=== PATIENT | female | born 1970 | race African-American/Black ===

== ENCOUNTER 2016-10-15 00:16 | Inpatient (IN) | payer OTHER ==
[2016-10-15] VITALS (10 sets, daily range): BP systolic 124–179; BP diastolic 65–89
[~2016-10-15] VITALS: Ht 170.2 cm; Wt 88.2 kg
[2016-10-15 00:54] LABS: BILIRUBIN,URINE NEGATIVE (NEG); GLUCOSE,URINE NEGATIVE (NEG); NITRITE,URINE NEGATIVE (NEG); PROTEIN,URINE NEGATIVE (NEG-TRACE); UROBILINOGEN,URINE 0.2 mg/dL (0.2 mg/dL)
[2016-10-15 01:03] LABS: BACTERIA,URINE 0 /HPF (0-FEW); SQUAMOUS EPITHELIAL CELL,UR FEW /LPF
[2016-10-15 01:30] LABS: BASO # 0.1 x10^3/uL (0.0-0.2); BASO % 1 % (0-3); EOS % 3 % (0-3); HEMATOCRIT 29.7 % (36.0-47.0); HEMOGLOBIN 9.3 g/dL (12.0-15.5); LYMPH # 2.2 x10^3/uL (1.0-4.8); LYMPH % 34 % (24-48); MEAN CORPUSCULAR HEMOGLOBIN 24 pg (25-35); MEAN CORPUSCULAR HGB CONC 31 g/dL (31-37); MEAN CORPUSCULAR VOLUME 76 fL (79-100); MONO % 7 % (0-9); NEUT % 54 % (31-73); PLATELET COUNT 333 x10^3/uL (140-400); RED BLOOD COUNT 3.92 x10^6/uL (3.50-5.40); RED CELL DISTRIBUTION WIDTH 18.2 % (11.5-14.5); WHITE BLOOD COUNT 6.3 x10^3/uL (4.0-11.0)
[2016-10-15 01:38] LABS: CALCIUM 9.6 mg/dL (8.5-10.1); GFR 71.6; POTASSIUM 3.2 mmol/L (3.5-5.1)
[2016-10-15 01:44] LABS: ALBUMIN 3.4 g/dL (3.4-5.0); ALBUMIN/GLOBULIN RATIO 0.9 (1.0-1.7); TOTAL BILIRUBIN 0.3 mg/dL (0.2-1.0); TOTAL PROTEIN 7.3 g/dL (6.4-8.2)
--- NOTE | 2016-10-15 03:00 | RAD ---
PELVIS COMPLETE Clinical Indication: HEAVY BLEEDING 2 WEEKS, NEG PREG, Comparison: None. TECHNIQUE: Real-time ultrasound imaging of the pelvis using transabdominal window is performed. Findings: Uterus measures 17.8 x 12.4 x 9.5 cm. The uterus is heterogeneous. There is suggestion of multiple uterine fibroids. The endometrium is not visualized. Incidentally visualized bladder is unremarkable. The adnexa are obscured due to the enlarged uterus and overlying bowel gas. No obvious pelvic free fluid is seen. IMPRESSION: 1. Enlarged and probably myomatous uterus. 2. The endometrial stripe and ovaries are not visualized. Electronically signed by: Ferny Walters MD (10/15/2016 2:57 AM) [facility]
[2016-10-15] MEDS ORDERED: amLODIPine BESYLATE 5 MG TABLET PO ONE (03:45)
[2016-10-15] MEDS ORDERED: LABETALOL 20 MG/4 ML DISP.SYRIN. IVP ONE (03:45)
[2016-10-15] MEDS ORDERED: fentaNYL PF VIAL 100 MCG/2 ML VIAL IV PRN ×2 (04:30→06:45)
[2016-10-15] MEDS ORDERED: cloNIDine HCL 0.1 MG TABLET PO ONE (04:30)
[2016-10-15] MEDS: ESTROGENS, CONJUGATED 25 MG VIAL IV SCH ×4 (04:35→23:09)
[2016-10-15] MEDS ORDERED: ONDANSETRON PF 4 MG/2 ML VIAL. IV PRN (06:45)
--- NOTE | 2016-10-15 06:59 | EKG ---
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
--- NOTE | 2016-10-15 07:24 | ED.ADGEN ---
Past Medical History Past Medical History: Hypertension Past Surgical History: No Surgical History, Other Additional Past Surgical Histo: CONTROL PLACEMENT Alcohol Use: Occasionally Drug Use: None Adult General Chief Complaint Chief Complaint: VAGINAL BLEEDING HPI HPI Patient is a 46 year old woman, history of hypertension, dysfunctional uterine bleeding, possible fibroids, who presents to the emergency department with complaint of persistent bleeding 2 weeks. Patient states that she's been experiencing persistent vaginal bleeding, passage of dark blood and clots, with some bright blood today, which brought her to come to the ED. She did be hypertensive upon arousing emergency department, to teens over 120s, and states that she stopped taking her blood pressure medication about a month ago or so, when she ran out. Patient states that she was taking control pills provided by her [employer] COMM[employer]ICATION[employer] ENG[employer], but stopped those about a year ago after her last episode of bleeding subsided. She states she has not follow-up with her OB yet for this episode. States she came in due to the persistence of symptoms and worsening symptoms today. She states she had a little bit of lightheadedness earlier, but no dizziness or passing out. Denies any weakness, numbness or tingling, chest pain or shortness breath, states that she does have a mild frontal headache currently. Denies any injuries. States that she is using about 5 pads a day. Review of Systems Review of Systems Constitutional: Denies fever or chills. [] Eyes: Denies change in visual acuity. [] HENT: Denies nasal congestion or sore throat. [] Respiratory: Denies cough or shortness of breath. [] Cardiovascular: Denies chest pain or edema. [] GI: Denies abdominal pain, nausea, vomiting, bloody stools or diarrhea. [] : Denies dysuria. [] Vaginal bleeding. Musculoskeletal: Denies back pain or joint pain. [] Integument: Denies rash. [] Neurologic: Denies headache, focal weakness or sensory changes. [] Endocrine: Denies polyuria or polydipsia. [] Lymphatic: Denies swollen glands. [] Psychiatric: Denies depression or anxiety. [] Allergies Allergies Allergies Coded Allergies Type Severity Reaction Last Updated Verified No Known Drug Allergies 10/24/14 No Physical Exam Physical Exam Constitutional: Well developed, well nourished, no acute distress, non-toxic appearance. [] HENT: Normocephalic, atraumatic, bilateral external ears normal, oropharynx moist, no oral exudates, nose normal. [] Eyes: PERRLA, EOMI, conjunctiva normal, no discharge. [] Neck: Normal range of motion, no tenderness, supple, no stridor. [] Cardiovascular:Heart rate regular rhythm, no murmur, S1, S2, rubs or gallops. [] Lungs & Thorax: Bilateral breath sounds clear to auscultation, no wheezing, rhonchi, rales. No chest wall crepitus or tenderness. [] Abdomen: Bowel sounds normal, soft, patient with firmness and distention of the uterus on palpation, no rebound, rigidity, no guarding, no masses, no pulsatile masses. [] Skin: Warm, dry, no erythema, no rash. [] Back: No tenderness, no CVA tenderness. [] Extremities: No tenderness, no cyanosis, no clubbing, ROM intact, no edema. [] Neurologic: Alert and oriented X 3, normal motor function, normal sensory function, no focal deficits noted. [] Psychologic: Affect normal, judgement normal, mood normal. [] Pelvic examination: Patient with a normal sternal examination, no lesions or injuries identified. Bimanual examination reveals an open os with a moderate amount of dark red blood on glove. Speculum examination reveals normal- appearing cervix with blood in the fold, no active bleeding noted at this time. Current Patient Data Vital Signs Vital Signs Date Time Temp Pulse Resp B/P (MAP) Pulse Ox O2 Delivery O2 Flow Rate FiO2 10/15/16 01:30 78 232/128 (162) 100 Room Air 10/15/16 00:45 98.1 18 98.1 Lab Values Laboratory Tests Test 10/14/16 23:49 10/15/16 00:17 10/15/16 01:21 POC Urine HCG, Qualitative Hcg negative (Negative) Urine Collection Type Unknown Urine Color Yellow Urine Clarity Clear Urine pH 6.0 Urine Specific [place] <=1.005 Urine Protein Negative mg/dL (NEG-TRACE) Urine Glucose (UA) Negative mg/dL (NEG) Urine Ketones (Stick) Negative mg/dL (NEG) Urine Blood Large (NEG) Urine Nitrite Negative (NEG) Urine Bilirubin Negative (NEG) Urine Urobilinogen Dipstick 0.2 mg/dL (0.2 mg/dL) Urine Leukocyte Esterase Negative (NEG) Urine RBC 1-2 /HPF (0-2) Urine WBC 1-4 /HPF (0-4) Urine Squamous Epithelial Cells Few /LPF Urine Bacteria 0 /HPF (0-FEW) Urine Mucus Slight /LPF White Blood Count 6.3 x10^3/uL (4.0-11.0) Red Blood Count 3.92 x10^6/uL (3.50-5.40) Hemoglobin 9.3 g/dL (12.0-15.5) L Hematocrit 29.7 % (36.0-47.0) L Mean Corpuscular Volume 76 fL (79-100) L Mean Corpuscular Hemoglobin 24 pg (25-35) L Mean Corpuscular Hemoglobin Concent 31 g/dL (31-37) Red Cell Distribution Width 18.2 % (11.5-14.5) H Platelet Count 333 x10^3/uL (140-400) Neutrophils (%) (Auto) 54 % (31-73) Lymphocytes (%) (Auto) 34 % (24-48) Monocytes (%) (Auto) 7 % (0-9) Eosinophils (%) (Auto) 3 % (0-3) Basophils (%) (Auto) 1 % (0-3) Neutrophils # (Auto) 3.4 x10^3uL (1.8-7.7) Lymphocytes # (Auto) 2.2 x10^3/uL (1.0-4.8) Monocytes # (Auto) 0.4 x10^3/uL (0.0-1.1) Eosinophils # (Auto) 0.2 x10^3/uL (0.0-0.7) Basophils # (Auto) 0.1 x10^3/uL (0.0-0.2) Sodium Level 139 mmol/L (136-145) Potassium Level 3.2 mmol/L (3.5-5.1) L Chloride Level 104 mmol/L (98-107) Carbon Dioxide Level 27 mmol/L (21-32) Anion Gap 8 (6-14) Blood Urea Nitrogen 16 mg/dL (7-20) Creatinine 1.0 mg/dL (0.6-1.0) Estimated GFR (Cockcroft-Gault) 71.6 BUN/Creatinine Ratio 16 (6-20) Glucose Level 83 mg/dL (70-99) Calcium Level 9.6 mg/dL (8.5-10.1) Total Bilirubin 0.3 mg/dL (0.2-1.0) Aspartate Amino Transferase (AST) 21 U/L (15-37) Alanine Aminotransferase (ALT) 19 U/L (14-59) Alkaline Phosphatase 83 U/L (46-116) Total Protein 7.3 g/dL (6.4-8.2) Albumin 3.4 g/dL (3.4-5.0) Albumin/Globulin Ratio 0.9 (1.0-1.7) L Laboratory Tests 10/15/16 01:21 Laboratory Tests 10/15/16 01:21 EKG EKG EC: Sinus rhythm, heart rate 67 beats/minute, left axis deviation with incomplete right bundle-branch block noted, and left anterior vesicular block, QTC of 451, [place] 168, QRS of 98, no ST elevations or depressions, abnormal ECG, does not meet STEMI criteria. No prior for comparison. As interpreted by me. [] Radiology/Procedures Radiology/Procedures [][facility] [address] [place] [address] IMAGING REPORT Signed PATIENT: JOSEFA VALVERDE ACCOUNT: [id number] : 1970 LOCATION: ER AGE: 46 SEX: F EXAM STATUS: REG ER ORD. PHYSICIAN: BRIGITTE GARCIA DO REASON: Abd pain/vaginal bleeding PROCEDURE: PELVIS COMPLETE PELVIS COMPLETE Clinical Indication: HEAVY BLEEDING 2 WEEKS, NEG PREG, Comparison: None. TECHNIQUE: Real-time ultrasound imaging of the pelvis using transabdominal window is performed. Findings: Uterus measures 17.8 x 12.4 x 9.5 cm. The uterus is heterogeneous. There is suggestion of multiple uterine fibroids. The endometrium is not visualized. Incidentally visualized bladder is unremarkable. The adnexa are obscured due to the enlarged uterus and overlying bowel gas. No obvious pelvic free fluid is seen. IMPRESSION: 1. Enlarged and probably myomatous uterus. 2. The endometrial stripe and ovaries are not visualized. Electronically signed by: Ferny Walters MD (10/15/2016 2:57 AM) [facility] DICTATED and SIGNED BY: FERNY WALTERS MD DATE: 10/15/16 0255 CC: BRIGITTE GARCIA DO; NO PCP ~ Course & Med Decision Making Course & Med Decision Making Pertinent Labs and Imaging studies reviewed. (See chart for details) Patient is a hemoglobin of 9.3, no history of anemia. Vital signs are stable in the emergency department, ultrasound reveals multiple fibroids and a distended uterus. I did discuss with patient, she states she was told previously that she would be recommended for hysterectomy. She did not follow-up at that time. As stated, patient is also noted to have an elevated blood pressure, we did administer the patient's home medication which she had not taken for over a month, 10 mg of Norvasc orally, along with labetalol IV in the ED. Administration was delayed due to difficulty with obtaining IV access. However despite with oral and IV intervention, patient's blood pressure remained in the 220s over 130s to 140s. Patient was complaining of a headache at that time as well. Patient was initiated on a nicardipine infusion for blood pressure control , also received analgesia with fentanyl. On reevaluation, blood pressure significant improved, with titration. Patient states her headache is now resolved. Findings as above were initially discussed with Dr. Falcon of [employer], at that time, we are still waiting to see if oral intervention would control patient's blood pressure, patient was initially exhibited his service as a full admission, for administration of IV estrogen, and patient received first dose of estrogen in the ED. I did contact Dr. Falcon after the lack of efficacy and using the oral and IV push medications for blood pressure control, the patient was initiated on a nicardipine infusion with good effect. He had this point will become a oracle drm consultant on the case, along with cardiology, and patient was admitted to the service of Dr. Alonso of internal medicine for comprehensive care, and close follow-up. Patient with repeat hemoglobin to be obtained 8:00 in the morning, with bridge orders entered per discussion. Patient remained stable and comfortable in the emergency department, with titration of nicardipine and good blood pressure control, at time of transfer to the floor. Dragon Disclaimer Dragon Disclaimer This electronic medical record was generated, in whole or in part, using a voice recognition dictation system. Departure Impression: Primary Impression: HTN (hypertension) Additional Impression: Vaginal bleeding Disposition: ADMITTED INPATIENT Admitting Physician: Jostin Alonso Condition: IMPROVED Problem Qualifiers BRIGITTE GARCIA DO Oct 15, 2016 07:24
[2016-10-15 08:26] LABS: BASO # 0.1 x10^3/uL (0.0-0.2); BASO % 1 % (0-3); EOS % 2 % (0-3); HEMATOCRIT 33.4 % (36.0-47.0); HEMOGLOBIN 10.5 g/dL (12.0-15.5); LYMPH # 1.3 x10^3/uL (1.0-4.8); LYMPH % 19 % (24-48); MEAN CORPUSCULAR HEMOGLOBIN 24 pg (25-35); MEAN CORPUSCULAR HGB CONC 32 g/dL (31-37); MEAN CORPUSCULAR VOLUME 76 fL (79-100); MONO % 5 % (0-9); NEUT % 73 % (31-73); PLATELET COUNT 381 x10^3/uL (140-400); RED BLOOD COUNT 4.42 x10^6/uL (3.50-5.40)
--- NOTE | 2016-10-15 10:08 | PDOC2 ---
BESSIE MCGEE DOCUMENT PROCESSING SPECIALIST 10/15/16 1008: CARDIAC CONSULT DATE OF CONSULT Date of Consult DATE: 10/15/16 TIME: 10:00 REASON FOR CONSULT Reason for Consult: Hypertension REFERRING PHYSICIAN Referring Physician: Dr. Torrez SOURCE Source: Chart review, Patient HISTORY OF PRESENT ILLNESS HISTORY OF PRESENT ILLNESS This is a 46 yo female, with a history of hypertension and dysfunctional uterine bleeding, and uterine fibroids, who presented with complaints of persistent vaginal bleeding over the last couple of weeks. BP noted to be significantly elevated upon arrival to ED. Norvasc PO and IV labetalol administered. SBP remained over 200; Cardene gtt initiated. Patient was previously on Norvasc but ran out of medication a couple of months ago and did not get refilled. Denies any chest pain, palpitations, dizziness, SOA, diaphoresis, or n/v. PAST MEDICAL HISTORY Past Medical History Hypertension, Dysfunctional uterine bleeding, Uterine fibroids PAST SURGICAL HISTORY Past Surgical History: No pertinent history FAMILY HISTORY Family History: Hypertension SOCIAL HISTORY Smoke: No ALCOHOL: none Drugs: None Lives: with Family CURRENT MEDICATIONS CURRENT MEDICATIONS Current Medications Medications (Trade) Dose Ordered Sig/Benjie Route PRN Reason Start Time Stop Time Status Last Admin Dose Admin Labetalol HCl (Normodyne) 20 mg 1X ONCE IVP 10/15/16 03:45 10/15/16 03:46 DC 10/15/16 04:17 Amlodipine Besylate (Norvasc) 10 mg 1X ONCE PO 10/15/16 03:45 10/15/16 03:46 DC 10/15/16 04:15 Estrogens Conjugated (Premarin) 25 mg Q6H IV 10/15/16 04:00 10/15/16 04:35 Fentanyl Citrate (Fentanyl 2ml Vial) 50 mcg PRN Q15MIN PRN IV PAIN GREATER THAN 3/10 10/15/16 04:30 10/16/16 04:29 10/15/16 04:34 Nicardipine HCl 50 mg/Sodium Chloride 270 ml @ 0 mls/hr CONT PRN IV SEE I/O RECORD 10/15/16 04:45 10/15/16 04:57 ALLERGIES ALLERGIES: Coded Allergies: No Known Drug Allergies (Unverified , 10/24/14) ROS Review of System 14 point ROS conducted with pertinent positives noted above in HPI. PHYSICAL EXAM General: Alert, Oriented X3, Cooperative, No acute distress HEENT: Atraumatic, Mucous membr. moist/pink Lungs: Clear to auscultation, Normal air movement Heart: Regular rate, Normal S1, Normal S2, Other (2/6 systolic murmur ) Abdomen: Soft, Other (mild diffuse tenderness) Extremities: No edema, Normal pulses Skin: No significant lesion Neuro: Normal speech, Sensation intact Psych/Mental Status: Mental status NL, Mood NL MUSCULOSKELETAL: No swelling VITALS VITALS Vital Signs Date Time Temp Pulse Resp B/P (MAP) Pulse Ox O2 Delivery O2 Flow Rate FiO2 10/15/16 09:00 70 18 149/77 (101) 100 Room Air 10/15/16 07:30 98.2 98.2 LABS Lab: Laboratory Tests Test 10/14/16 23:49 10/15/16 00:17 10/15/16 01:21 10/15/16 08:05 Bedside Urine HCG, Qualitative Hcg negative (Negative) Urine Collection Type Unknown Urine Color Yellow Urine Clarity Clear Urine pH 6.0 Urine Specific [place] <=1.005 Urine Protein Negative mg/dL (NEG-TRACE) Urine Glucose (UA) Negative mg/dL (NEG) Urine Ketones (Stick) Negative mg/dL (NEG) Urine Blood Large (NEG) Urine Nitrite Negative (NEG) Urine Bilirubin Negative (NEG) Urine Urobilinogen Dipstick 0.2 mg/dL (0.2 mg/dL) Urine Leukocyte Esterase Negative (NEG) Urine RBC 1-2 /HPF (0-2) Urine WBC 1-4 /HPF (0-4) Urine Squamous Epithelial Cells Few /LPF Urine Bacteria 0 /HPF (0-FEW) Urine Mucus Slight /LPF White Blood Count 6.3 x10^3/uL (4.0-11.0) 7.0 x10^3/uL (4.0-11.0) Red Blood Count 3.92 x10^6/uL (3.50-5.40) 4.42 x10^6/uL (3.50-5.40) Hemoglobin 9.3 g/dL (12.0-15.5) 10.5 g/dL (12.0-15.5) Hematocrit 29.7 % (36.0-47.0) 33.4 % (36.0-47.0) Mean Corpuscular Volume 76 fL (79-100) 76 fL (79-100) Mean Corpuscular Hemoglobin 24 pg (25-35) 24 pg (25-35) Mean Corpuscular Hemoglobin Concent 31 g/dL (31-37) 32 g/dL (31-37) Red Cell Distribution Width 18.2 % (11.5-14.5) 18.0 % (11.5-14.5) Platelet Count 333 x10^3/uL (140-400) 381 x10^3/uL (140-400) Neutrophils (%) (Auto) 54 % (31-73) 73 % (31-73) Lymphocytes (%) (Auto) 34 % (24-48) 19 % (24-48) Monocytes (%) (Auto) 7 % (0-9) 5 % (0-9) Eosinophils (%) (Auto) 3 % (0-3) 2 % (0-3) Basophils (%) (Auto) 1 % (0-3) 1 % (0-3) Neutrophils # (Auto) 3.4 x10^3uL (1.8-7.7) 5.1 x10^3uL (1.8-7.7) Lymphocytes # (Auto) 2.2 x10^3/uL (1.0-4.8) 1.3 x10^3/uL (1.0-4.8) Monocytes # (Auto) 0.4 x10^3/uL (0.0-1.1) 0.3 x10^3/uL (0.0-1.1) Eosinophils # (Auto) 0.2 x10^3/uL (0.0-0.7) 0.2 x10^3/uL (0.0-0.7) Basophils # (Auto) 0.1 x10^3/uL (0.0-0.2) 0.1 x10^3/uL (0.0-0.2) Sodium Level 139 mmol/L (136-145) Potassium Level 3.2 mmol/L (3.5-5.1) Chloride Level 104 mmol/L (98-107) Carbon Dioxide Level 27 mmol/L (21-32) Anion Gap 8 (6-14) Blood Urea Nitrogen 16 mg/dL (7-20) Creatinine 1.0 mg/dL (0.6-1.0) Estimated GFR (Cockcroft-Gault) 71.6 BUN/Creatinine Ratio 16 (6-20) Glucose Level 83 mg/dL (70-99) Calcium Level 9.6 mg/dL (8.5-10.1) Total Bilirubin 0.3 mg/dL (0.2-1.0) Aspartate Amino Transf (AST/SGOT) 21 U/L (15-37) Alanine Aminotransferase (ALT/SGPT) 19 U/L (14-59) Alkaline Phosphatase 83 U/L (46-116) Total Protein 7.3 g/dL (6.4-8.2) Albumin 3.4 g/dL (3.4-5.0) Albumin/Globulin Ratio 0.9 (1.0-1.7) ASSESSMENT/PLAN ASSESSMENT/PLAN 1. Malignant Hypertension; improved with Cardene gtt. Now controlled. 2. Dysfunctional uterine bleeding 3. Anemia secondary to blood loss 4. Hypokalemia Recommendations Start lisinopril. Titrate off Cardene gtt Replace K. check Mg and TSH Echo to evaluate systolic murmur; patient would like to defer at this time. Would like to schedule as an outpatient with followup. Will arrange. Management of DUB per BOOK BINDER Problems: SONNY CAMPBELL MD 10/15/16 1558: CARDIAC CONSULT ALLERGIES ALLERGIES: Coded Allergies: No Known Drug Allergies (Unverified , 10/24/14) ASSESSMENT/PLAN ASSESSMENT/PLAN Patient seen and examined. Agree with PANTS PRESSER's assessment and plan. 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 Blood pressure much better controlled since admission. Titrate oral and hypertensives and green Cardene off. 2-D echo recommended to evaluate LV function but patient would like to get this done as an outpatient. Continue management of DUB per gynecology team. Thank you for your consultation. Problems: JUAREZ MCGEEILY CHARLA Oct 15, 2016 10:08 SONNY CAMPBELL MD Oct 15, 2016 15:58
[2016-10-15] MEDS: ACETAMINOPHEN 325 MG TABLET. PO PRN ×2 (10:49→15:52)
[2016-10-15] MEDS ORDERED: POTASSIUM CHLORIDE 20 MEQ TABLET.ER. PO ONE (11:00)
[2016-10-15] MEDS: LISINOPRIL 20 MG TABLET PO SCH (11:42)
[2016-10-15] MEDS: ASPIRIN ENTERIC COATED 81 MG TABLET.DR. PO SCH (11:44)
[2016-10-15] MEDS: IV NORMAL SALINE 1000ML BAG 1,000 ML IV SCH ×2 (11:45→19:42)
--- NOTE | 2016-10-15 12:57 | PDOC1 ---
History and Physical Date of Admission Date of Admission 10/15/16 Identification/Chief Complaint Chief Complaint vaginal bleeding, htn Problems: Source Source: Chart review, Patient History of Present Illness History of Present Illness HPI HPI Patient is a 46 year old woman, history of hypertension, dysfunctional uterine bleeding, possible fibroids, came to ER for vaginal bleeding for 2 weeks. Pt said not really following any PCP now, on changing PCP status, not taking any HTN meds for a long time, was taking amlodipine before. She has had vaginal bleeding for 2 weeks, never goes away, was heavy at the beginning, then better, then worse again. She has some headache, but not real lightheaded or chest pain. She had similar vaginal bleeding before, was told fibroids, saw ob, but not intervention was done, has Essure for control. in ER, hB 9.3. BP 240s/130s. in ICU for cardine drip. Past Medical History Cardiovascular: HTN Past Surgical History Past Surgical History: No pertinent history Family History Family History: Hypertension Social History Smoke: No ALCOHOL: none Drugs: None Current Medications Current Medications Current Medications Medications (Trade) Dose Ordered Sig/Benjie Start Time Stop Time Status Last Admin Dose Admin Acetaminophen (Tylenol) 650 mg PRN Q4HRS PRN 10/15/16 06:45 10/16/16 06:44 10/15/16 10:49 650 MG Amlodipine Besylate (Norvasc) 10 mg 1X ONCE 10/15/16 03:45 10/15/16 03:46 DC 10/15/16 04:15 10 MG Aspirin (Ecotrin) 81 mg DAILYWBKFT 10/15/16 11:30 10/15/16 11:44 81 MG Clonidine HCl (Catapres) 0.1 mg 1X ONCE 10/15/16 04:30 10/15/16 04:31 DC Estrogens Conjugated (Premarin) 25 mg Q6H 10/15/16 04:00 10/15/16 11:38 25 MG Fentanyl Citrate (Fentanyl 2ml Vial) 50 mcg PRN Q1HR PRN 10/15/16 06:45 10/16/16 06:44 Labetalol HCl (Normodyne) 20 mg 1X ONCE 10/15/16 03:45 10/15/16 03:46 DC 10/15/16 04:17 20 MG Lisinopril (Prinivil) 20 mg DAILY 10/15/16 11:00 10/15/16 11:42 20 MG Nicardipine HCl 50 mg/Sodium Chloride 270 ml @ 0 mls/hr CONT PRN 10/15/16 04:45 10/15/16 04:57 25 MLS/HR Ondansetron HCl (Zofran) 4 mg PRN Q8HRS PRN 10/15/16 06:45 10/16/16 06:44 10/15/16 10:49 4 MG Potassium Chloride (Klor-Con) 40 meq 1X ONCE 10/15/16 11:00 10/15/16 11:03 DC 10/15/16 11:42 40 MEQ Sodium Chloride 1,000 ml @ 125 mls/hr Q8H 10/15/16 06:45 10/16/16 06:44 10/15/16 11:45 125 MLS/HR Allergies Allergies Allergies Coded Allergies Type Severity Reaction Last Updated Verified No Known Drug Allergies 10/24/14 No ROS Review of System CONSTITUTIONAL: No fever or chills EYES: No recent changes SKIN: No rash or itching CARDIOVASCULAR: No chest pain, syncope, palpitations, or edema RESPIRATORY: No SOB or cough GASTROINTESTINAL: No nausea, vomiting or abdominal pain NEUROLOGICAL: No headaches or weakness ENDOCRINE: No cold or heat intolerance GENITOURINARY: No urgency or frequency of urination MUSCULOSKELETAL: No back pain or joint pain LYMPHATICS: No enlarged lymph nodes PSYCHIATRIC: No anxiety or depression Physical Exam Physical Exam GEN.: No apparent distress. Alert and oriented. HEENT: Head is normocephalic, atraumatic NECK: Supple. LUNGS: Clear to auscultation. HEART: RRR, S1, S2 present. Peripheral pulses intact ABDOMEN: Soft, nontender. Positive bowel sounds. EXTREMITIES: Without any cyanosis. NEUROLOGIC: Normal speech, normal tone PSYCHIATRIC: Normal affect, normal mood. SKIN: No ulcerations Vitals Vitals Vital Signs Date Time Temp Pulse Resp B/P (MAP) Pulse Ox O2 Delivery O2 Flow Rate FiO2 10/15/16 11:42 151/71 10/15/16 09:00 70 18 100 Room Air 10/15/16 07:30 98.2 98.2 Labs Labs Laboratory Tests Test 10/14/16 23:49 10/15/16 00:17 10/15/16 01:10/15/16 08:05 Bedside Urine HCG, Qualitative Hcg negative (Negative) Urine Collection Type Unknown Urine Color Yellow Urine Clarity Clear Urine pH 6.0 Urine Specific [place] <=1.005 Urine Protein Negative mg/dL (NEG-TRACE) Urine Glucose (UA) Negative mg/dL (NEG) Urine Ketones (Stick) Negative mg/dL (NEG) Urine Blood Large (NEG) Urine Nitrite Negative (NEG) Urine Bilirubin Negative (NEG) Urine Urobilinogen Dipstick 0.2 mg/dL (0.2 mg/dL) Urine Leukocyte Esterase Negative (NEG) Urine RBC 1-2 /HPF (0-2) Urine WBC 1-4 /HPF (0-4) Urine Squamous Epithelial Cells Few /LPF Urine Bacteria 0 /HPF (0-FEW) Urine Mucus Slight /LPF White Blood Count 6.3 x10^3/uL (4.0-11.0) 7.0 x10^3/uL (4.0-11.0) Red Blood Count 3.92 x10^6/uL (3.50-5.40) 4.42 x10^6/uL (3.50-5.40) Hemoglobin 9.3 g/dL (12.0-15.5) 10.5 g/dL (12.0-15.5) Hematocrit 29.7 % (36.0-47.0) 33.4 % (36.0-47.0) Mean Corpuscular Volume 76 fL (79-100) 76 fL (79-100) Mean Corpuscular Hemoglobin 24 pg (25-35) 24 pg (25-35) Mean Corpuscular Hemoglobin Concent 31 g/dL (31-37) 32 g/dL (31-37) Red Cell Distribution Width 18.2 % (11.5-14.5) 18.0 % (11.5-14.5) Platelet Count 333 x10^3/uL (140-400) 381 x10^3/uL (140-400) Neutrophils (%) (Auto) 54 % (31-73) 73 % (31-73) Lymphocytes (%) (Auto) 34 % (24-48) 19 % (24-48) Monocytes (%) (Auto) 7 % (0-9) 5 % (0-9) Eosinophils (%) (Auto) 3 % (0-3) 2 % (0-3) Basophils (%) (Auto) 1 % (0-3) 1 % (0-3) Neutrophils # (Auto) 3.4 x10^3uL (1.8-7.7) 5.1 x10^3uL (1.8-7.7) Lymphocytes # (Auto) 2.2 x10^3/uL (1.0-4.8) 1.3 x10^3/uL (1.0-4.8) Monocytes # (Auto) 0.4 x10^3/uL (0.0-1.1) 0.3 x10^3/uL (0.0-1.1) Eosinophils # (Auto) 0.2 x10^3/uL (0.0-0.7) 0.2 x10^3/uL (0.0-0.7) Basophils # (Auto) 0.1 x10^3/uL (0.0-0.2) 0.1 x10^3/uL (0.0-0.2) Sodium Level 139 mmol/L (136-145) Potassium Level 3.2 mmol/L (3.5-5.1) Chloride Level 104 mmol/L (98-107) Carbon Dioxide Level 27 mmol/L (21-32) Anion Gap 8 (6-14) Blood Urea Nitrogen 16 mg/dL (7-20) Creatinine 1.0 mg/dL (0.6-1.0) Estimated GFR (Cockcroft-Gault) 71.6 BUN/Creatinine Ratio 16 (6-20) Glucose Level 83 mg/dL (70-99) Calcium Level 9.6 mg/dL (8.5-10.1) Total Bilirubin 0.3 mg/dL (0.2-1.0) Aspartate Amino Transf (AST/SGOT) 21 U/L (15-37) Alanine Aminotransferase (ALT/SGPT) 19 U/L (14-59) Alkaline Phosphatase 83 U/L (46-116) Total Protein 7.3 g/dL (6.4-8.2) Albumin 3.4 g/dL (3.4-5.0) Albumin/Globulin Ratio 0.9 (1.0-1.7) Magnesium Level 2.1 mg/dL (1.8-2.4) Thyroid Stimulating Hormone (TSH) 1.235 uIU/mL (0.358-3.74) Laboratory Tests Test 10/14/16 23:49 10/15/16 00:17 10/15/16 01:21 10/15/16 08:05 Bedside Urine HCG, Qualitative Hcg negative (Negative) Urine Collection Type Unknown Urine Color Yellow Urine Clarity Clear Urine pH 6.0 Urine Specific [place] <=1.005 Urine Protein Negative mg/dL (NEG-TRACE) Urine Glucose (UA) Negative mg/dL (NEG) Urine Ketones (Stick) Negative mg/dL (NEG) Urine Blood Large (NEG) Urine Nitrite Negative (NEG) Urine Bilirubin Negative (NEG) Urine Urobilinogen Dipstick 0.2 mg/dL (0.2 mg/dL) Urine Leukocyte Esterase Negative (NEG) Urine RBC 1-2 /HPF (0-2) Urine WBC 1-4 /HPF (0-4) Urine Squamous Epithelial Cells Few /LPF Urine Bacteria 0 /HPF (0-FEW) Urine Mucus Slight /LPF White Blood Count 6.3 x10^3/uL (4.0-11.0) 7.0 x10^3/uL (4.0-11.0) Red Blood Count 3.92 x10^6/uL (3.50-5.40) 4.42 x10^6/uL (3.50-5.40) Hemoglobin 9.3 g/dL (12.0-15.5) 10.5 g/dL (12.0-15.5) Hematocrit 29.7 % (36.0-47.0) 33.4 % (36.0-47.0) Mean Corpuscular Volume 76 fL (79-100) 76 fL (79-100) Mean Corpuscular Hemoglobin 24 pg (25-35) 24 pg (25-35) Mean Corpuscular Hemoglobin Concent 31 g/dL (31-37) 32 g/dL (31-37) Red Cell Distribution Width 18.2 % (11.5-14.5) 18.0 % (11.5-14.5) Platelet Count 333 x10^3/uL (140-400) 381 x10^3/uL (140-400) Neutrophils (%) (Auto) 54 % (31-73) 73 % (31-73) Lymphocytes (%) (Auto) 34 % (24-48) 19 % (24-48) Monocytes (%) (Auto) 7 % (0-9) 5 % (0-9) Eosinophils (%) (Auto) 3 % (0-3) 2 % (0-3) Basophils (%) (Auto) 1 % (0-3) 1 % (0-3) Neutrophils # (Auto) 3.4 x10^3uL (1.8-7.7) 5.1 x10^3uL (1.8-7.7) Lymphocytes # (Auto) 2.2 x10^3/uL (1.0-4.8) 1.3 x10^3/uL (1.0-4.8) Monocytes # (Auto) 0.4 x10^3/uL (0.0-1.1) 0.3 x10^3/uL (0.0-1.1) Eosinophils # (Auto) 0.2 x10^3/uL (0.0-0.7) 0.2 x10^3/uL (0.0-0.7) Basophils # (Auto) 0.1 x10^3/uL (0.0-0.2) 0.1 x10^3/uL (0.0-0.2) Sodium Level 139 mmol/L (136-145) Potassium Level 3.2 mmol/L (3.5-5.1) Chloride Level 104 mmol/L (98-107) Carbon Dioxide Level 27 mmol/L (21-32) Anion Gap 8 (6-14) Blood Urea Nitrogen 16 mg/dL (7-20) Creatinine 1.0 mg/dL (0.6-1.0) Estimated GFR (Cockcroft-Gault) 71.6 BUN/Creatinine Ratio 16 (6-20) Glucose Level 83 mg/dL (70-99) Calcium Level 9.6 mg/dL (8.5-10.1) Total Bilirubin 0.3 mg/dL (0.2-1.0) Aspartate Amino Transf (AST/SGOT) 21 U/L (15-37) Alanine Aminotransferase (ALT/SGPT) 19 U/L (14-59) Alkaline Phosphatase 83 U/L (46-116) Total Protein 7.3 g/dL (6.4-8.2) Albumin 3.4 g/dL (3.4-5.0) Albumin/Globulin Ratio 0.9 (1.0-1.7) Magnesium Level 2.1 mg/dL (1.8-2.4) Thyroid Stimulating Hormone (TSH) 1.235 uIU/mL (0.358-3.74) VTE Prophylaxis Ordered VTE Prophylaxis Devices: Yes VTE Pharmacological Prophylaxi: No Assessment/Plan Assessment/Plan HTN urgency abnormal vaginal bleeding, 2/2 uterine fibroids likely , had essure hypokalemia obesity anemia, likely chronic with vaginal bleeding plan: fu with ob, card taper cardine drip. add lisinopril 20mg daily echo? replete K PElivic US done check anemia work up ok to transfer out of icu if off cardine drip GIO MULLEN MD Oct 15, 2016 12:57
[2016-10-15] MEDS ORDERED: traMADol 50 MG TABLET PO PRN (13:00)
[2016-10-15] MEDS ORDERED: hydrALAZINE 20 MG/ML VIAL. IVP PRN (13:00)
[2016-10-15] MEDS ORDERED: ACETAMINOPHEN 325 MG TABLET. PO PRN (13:00)
[2016-10-15] MEDS ORDERED: MORPHINE SULFATE 2 MG/ML DISP.SYRIN. IV PRN (13:00)
[2016-10-15] MEDS ORDERED: DOCUSATE SODIUM 100 MG CAPSULE. PO PRN (13:00)
--- NOTE | 2016-10-15 16:44 | PDOC2 ---
CONSULT Date of Consult Date of Consult DATE: 10/15/16 TIME: 16:36 Reason for Consult Reason for Consult: AUB Identification/Chief Complaint Chief Complaint AUB Problems: Source Source: Patient History of Present Illness Reason for Visit: H/O AUB with fibroids greater than one year Past Medical History Cardiovascular: HTN Pulmonary: No pertinent hx GI: No pertinent hx Heme/Onc: No pertinent hx Past Surgical History Past Surgical History ESSURE Past Surgical History: No pertinent history Family History Family History: Hypertension Social History No ALCOHOL: none Drugs: None Lives: with Family Current Medications Current Medications Current Medications Labetalol HCl (Normodyne) 20 mg 1X ONCE IVP Last administered on 10/15/16 04: 17; Start 10/15/16 at 03:45; Stop 10/15/16 at 03:46; Status DC Amlodipine Besylate (Norvasc) 10 mg 1X ONCE PO Last administered on 10/15/16 04:15; Start 10/15/16 at 03:45; Stop 10/15/16 at 03:46; Status DC Estrogens Conjugated (Premarin) 25 mg Q6H IV Last administered on 10/15/16 11: 38; Start 10/15/16 at 04:00 Clonidine HCl (Catapres) 0.1 mg 1X ONCE PO ; Start 10/15/16 at 04:30; Stop at 04:31; Status DC Fentanyl Citrate (Fentanyl 2ml Vial) 50 mcg PRN Q15MIN PRN IV PAIN GREATER THAN 3/10 Last administered on 10/15/16 04:34; Start 10/15/16 at 04:30; Stop at 04:29 Nicardipine HCl 50 mg/Sodium Chloride 270 ml @ 0 mls/hr CONT PRN IV SEE I/O RECORD Last administered on 10/15/16 04:57; Start 10/15/16 at 04:45 Ondansetron HCl (Zofran) 4 mg PRN Q8HRS PRN IV NAUSEA/VOMITING Last administered on 10/15/16 10:49; Start 10/15/16 at 06:45; Stop 10/16/16 at 06:44 Fentanyl Citrate (Fentanyl 2ml Vial) 50 mcg PRN Q1HR PRN IV PAIN; Start at 06:45; Stop 10/16/16 at 06:44 Sodium Chloride 1,000 ml @ 125 mls/hr Q8H IV Last administered on 10/15/16 11 :45; Start 10/15/16 at 06:45; Stop 10/16/16 at 06:44 Acetaminophen (Tylenol) 650 mg PRN Q4HRS PRN PO FEVER Last administered on 10/15 15:52; Start 10/15/16 at 06:45; Stop 10/16/16 at 06:44 Lisinopril (Prinivil) 20 mg DAILY PO Last administered on 10/15/16 11:42; Start 10/15/16 at 11:00 Aspirin (Ecotrin) 81 mg DAILYWBKFT PO Last administered on 10/15/16 11:44; Start 10/15/16 at 11:30 Potassium Chloride (Klor-Con) 40 meq 1X ONCE PO Last administered on 11:42; Start 10/15/16 at 11:00; Stop 10/15/16 at 11:03; Status DC Acetaminophen (Tylenol) 650 mg PRN Q6HRS PRN PO FEVER; Start 10/15/16 at 13:00 Ondansetron HCl (Zofran) 4 mg PRN Q6HRS PRN IV NAUSEA/VOMITING; Start 10/15/16 at 13:00 Morphine Sulfate 2 mg PRN Q2HR PRN IV PAIN; Start 10/15/16 at 13:00 Tramadol HCl (Ultram) 50 mg PRN Q6HRS PRN PO PAIN; Start 10/15/16 at 13:00 Hydralazine HCl (Apresoline) 10 mg PRN Q4HRS PRN IVP ELEVATED BP, SEE COMMENTS ; Start 10/15/16 at 13:00 Docusate Sodium (Colace) 100 mg PRN DAILY PRN PO CONSTIPATION; Start 10/15/16 at 13:00 Allergies Allergies: Coded Allergies: No Known Drug Allergies (Unverified , 10/24/14) Physical Exam General: Alert, Oriented X3, Cooperative, No acute distress Abdomen: Other Extremities: No clubbing, No cyanosis, No edema, Normal pulses, No tenderness/ swelling Skin: No rashes, No breakdown Neuro: Normal gait, Normal speech, Normal tone, Sensation intact, Reflexes 2+ Psych/Mental Status: Mental status NL, Mood NL Vitals VITALS Vital Signs Date Time Temp Pulse Resp B/P (MAP) Pulse Ox O2 Delivery O2 Flow Rate FiO2 10/15/16 13:00 70 18 140/81 (100) Room Air 10/15/16 12:00 97.7 97.7 10/15/16 09:00 100 Labs Labs Laboratory Tests Test 10/14/16 23:49 10/15/16 00:17 10/15/16 01:21 10/15/16 06:00 Bedside Urine HCG, Qualitative Hcg negative (Negative) Urine Collection Type Unknown Urine Color Yellow Urine Clarity Clear Urine pH 6.0 Urine Specific [place] <=1.005 Urine Protein Negative mg/dL (NEG-TRACE) Urine Glucose (UA) Negative mg/dL (NEG) Urine Ketones (Stick) Negative mg/dL (NEG) Urine Blood Large (NEG) Urine Nitrite Negative (NEG) Urine Bilirubin Negative (NEG) Urine Urobilinogen Dipstick 0.2 mg/dL (0.2 mg/dL) Urine Leukocyte Esterase Negative (NEG) Urine RBC 1-2 /HPF (0-2) Urine WBC 1-4 /HPF (0-4) Urine Squamous Epithelial Cells Few /LPF Urine Bacteria 0 /HPF (0-FEW) Urine Mucus Slight /LPF White Blood Count 6.3 x10^3/uL (4.0-11.0) Red Blood Count 3.92 x10^6/uL (3.50-5.40) Hemoglobin 9.3 g/dL (12.0-15.5) Hematocrit 29.7 % (36.0-47.0) Mean Corpuscular Volume 76 fL (79-100) Mean Corpuscular Hemoglobin 24 pg (25-35) Mean Corpuscular Hemoglobin Concent 31 g/dL (31-37) Red Cell Distribution Width 18.2 % (11.5-14.5) Platelet Count 333 x10^3/uL (140-400) Neutrophils (%) (Auto) 54 % (31-73) Lymphocytes (%) (Auto) 34 % (24-48) Monocytes (%) (Auto) 7 % (0-9) Eosinophils (%) (Auto) 3 % (0-3) Basophils (%) (Auto) 1 % (0-3) Neutrophils # (Auto) 3.4 x10^3uL (1.8-7.7) Lymphocytes # (Auto) 2.2 x10^3/uL (1.0-4.8) Monocytes # (Auto) 0.4 x10^3/uL (0.0-1.1) Eosinophils # (Auto) 0.2 x10^3/uL (0.0-0.7) Basophils # (Auto) 0.1 x10^3/uL (0.0-0.2) Sodium Level 139 mmol/L (136-145) Potassium Level 3.2 mmol/L (3.5-5.1) Chloride Level 104 mmol/L (98-107) Carbon Dioxide Level 27 mmol/L (21-32) Anion Gap 8 (6-14) Blood Urea Nitrogen 16 mg/dL (7-20) Creatinine 1.0 mg/dL (0.6-1.0) Estimated GFR (Cockcroft-Gault) 71.6 BUN/Creatinine Ratio 16 (6-20) Glucose Level 83 mg/dL (70-99) Calcium Level 9.6 mg/dL (8.5-10.1) Total Bilirubin 0.3 mg/dL (0.2-1.0) Aspartate Amino Transf (AST/SGOT) 21 U/L (15-37) Alanine Aminotransferase (ALT/SGPT) 19 U/L (14-59) Alkaline Phosphatase 83 U/L (46-116) Total Protein 7.3 g/dL (6.4-8.2) Albumin 3.4 g/dL (3.4-5.0) Albumin/Globulin Ratio 0.9 (1.0-1.7) Nasal Screen MRSA (PCR) Negative (Negative) Test 10/15/16 08:05 White Blood Count 7.0 x10^3/uL (4.0-11.0) Red Blood Count 4.42 x10^6/uL (3.50-5.40) Hemoglobin 10.5 g/dL (12.0-15.5) Hematocrit 33.4 % (36.0-47.0) Mean Corpuscular Volume 76 fL (79-100) Mean Corpuscular Hemoglobin 24 pg (25-35) Mean Corpuscular Hemoglobin Concent 32 g/dL (31-37) Red Cell Distribution Width 18.0 % (11.5-14.5) Platelet Count 381 x10^3/uL (140-400) Neutrophils (%) (Auto) 73 % (31-73) Lymphocytes (%) (Auto) 19 % (24-48) Monocytes (%) (Auto) 5 % (0-9) Eosinophils (%) (Auto) 2 % (0-3) Basophils (%) (Auto) 1 % (0-3) Neutrophils # (Auto) 5.1 x10^3uL (1.8-7.7) Lymphocytes # (Auto) 1.3 x10^3/uL (1.0-4.8) Monocytes # (Auto) 0.3 x10^3/uL (0.0-1.1) Eosinophils # (Auto) 0.2 x10^3/uL (0.0-0.7) Basophils # (Auto) 0.1 x10^3/uL (0.0-0.2) Magnesium Level 2.1 mg/dL (1.8-2.4) Thyroid Stimulating Hormone (TSH) 1.235 uIU/mL (0.358-3.74) Laboratory Tests Test 10/14/16 23:49 10/15/16 00:17 10/15/16 01:21 10/15/16 06:00 Bedside Urine HCG, Qualitative Hcg negative (Negative) Urine Collection Type Unknown Urine Color Yellow Urine Clarity Clear Urine pH 6.0 Urine Specific [place] <=1.005 Urine Protein Negative mg/dL (NEG-TRACE) Urine Glucose (UA) Negative mg/dL (NEG) Urine Ketones (Stick) Negative mg/dL (NEG) Urine Blood Large (NEG) Urine Nitrite Negative (NEG) Urine Bilirubin Negative (NEG) Urine Urobilinogen Dipstick 0.2 mg/dL (0.2 mg/dL) Urine Leukocyte Esterase Negative (NEG) Urine RBC 1-2 /HPF (0-2) Urine WBC 1-4 /HPF (0-4) Urine Squamous Epithelial Cells Few /LPF Urine Bacteria 0 /HPF (0-FEW) Urine Mucus Slight /LPF White Blood Count 6.3 x10^3/uL (4.0-11.0) Red Blood Count 3.92 x10^6/uL (3.50-5.40) Hemoglobin 9.3 g/dL (12.0-15.5) Hematocrit 29.7 % (36.0-47.0) Mean Corpuscular Volume 76 fL (79-100) Mean Corpuscular Hemoglobin 24 pg (25-35) Mean Corpuscular Hemoglobin Concent 31 g/dL (31-37) Red Cell Distribution Width 18.2 % (11.5-14.5) Platelet Count 333 x10^3/uL (140-400) Neutrophils (%) (Auto) 54 % (31-73) Lymphocytes (%) (Auto) 34 % (24-48) Monocytes (%) (Auto) 7 % (0-9) Eosinophils (%) (Auto) 3 % (0-3) Basophils (%) (Auto) 1 % (0-3) Neutrophils # (Auto) 3.4 x10^3uL (1.8-7.7) Lymphocytes # (Auto) 2.2 x10^3/uL (1.0-4.8) Monocytes # (Auto) 0.4 x10^3/uL (0.0-1.1) Eosinophils # (Auto) 0.2 x10^3/uL (0.0-0.7) Basophils # (Auto) 0.1 x10^3/uL (0.0-0.2) Sodium Level 139 mmol/L (136-145) Potassium Level 3.2 mmol/L (3.5-5.1) Chloride Level 104 mmol/L (98-107) Carbon Dioxide Level 27 mmol/L (21-32) Anion Gap 8 (6-14) Blood Urea Nitrogen 16 mg/dL (7-20) Creatinine 1.0 mg/dL (0.6-1.0) Estimated GFR (Cockcroft-Gault) 71.6 BUN/Creatinine Ratio 16 (6-20) Glucose Level 83 mg/dL (70-99) Calcium Level 9.6 mg/dL (8.5-10.1) Total Bilirubin 0.3 mg/dL (0.2-1.0) Aspartate Amino Transf (AST/SGOT) 21 U/L (15-37) Alanine Aminotransferase (ALT/SGPT) 19 U/L (14-59) Alkaline Phosphatase 83 U/L (46-116) Total Protein 7.3 g/dL (6.4-8.2) Albumin 3.4 g/dL (3.4-5.0) Albumin/Globulin Ratio 0.9 (1.0-1.7) Nasal Screen MRSA (PCR) Negative (Negative) Test 10/15/16 08:05 White Blood Count 7.0 x10^3/uL (4.0-11.0) Red Blood Count 4.42 x10^6/uL (3.50-5.40) Hemoglobin 10.5 g/dL (12.0-15.5) Hematocrit 33.4 % (36.0-47.0) Mean Corpuscular Volume 76 fL (79-100) Mean Corpuscular Hemoglobin 24 pg (25-35) Mean Corpuscular Hemoglobin Concent 32 g/dL (31-37) Red Cell Distribution Width 18.0 % (11.5-14.5) Platelet Count 381 x10^3/uL (140-400) Neutrophils (%) (Auto) 73 % (31-73) Lymphocytes (%) (Auto) 19 % (24-48) Monocytes (%) (Auto) 5 % (0-9) Eosinophils (%) (Auto) 2 % (0-3) Basophils (%) (Auto) 1 % (0-3) Neutrophils # (Auto) 5.1 x10^3uL (1.8-7.7) Lymphocytes # (Auto) 1.3 x10^3/uL (1.0-4.8) Monocytes # (Auto) 0.3 x10^3/uL (0.0-1.1) Eosinophils # (Auto) 0.2 x10^3/uL (0.0-0.7) Basophils # (Auto) 0.1 x10^3/uL (0.0-0.2) Magnesium Level 2.1 mg/dL (1.8-2.4) Thyroid Stimulating Hormone (TSH) 1.235 uIU/mL (0.358-3.74) Assessment/Plan Assessment/Plan AUB Symptomatic Uterine Leiomyomata Cannot rule ot uterine malignancy Recommendations: EMB SARAH Pt concerned about work R/B/I/A Discussed with pt in detail Will most likely perform EMB this hospitalization and send pt home on meal grinder tender 10mg qd and perform hyst after pt resolves work and social issues SIERRA EVANGELISTA MD Oct 15, 2016 16:44
[2016-10-15] MEDS: ONDANSETRON PF 4 MG/2 ML VIAL. IV PRN ×2 (16:59→22:35)
--- NOTE | 2016-10-16 00:25 | ACF ---
Admission Forms Criteria HYPERTENSION Clinical Indications for Admission to Inpatient Care ( Place "X" for any and all applicable criteria): Admission is indicated for 1 or more of the following(1)(2)(3)(4)(5)(6)(7)(8)(9) (10): [ ]I. Hypertensive emergency, with evidence of acute and progressing target organ disease as indicated by 1 or more of the following: [ ]a) Hypertensive encephalopathy (eg, confusion, altered mental status) [ ]b) Cerebral infarction [ ]c) Intracranial hemorrhage [ ]d) Myocardial ischemia or infarction [ ]e) Heart failure (eg. Pulmonary edema) [ ]f) Aortic dissection [ ]g) Increased creatinine (new) with reduction of more than 50% in estimated glomerular filtration rate from baseline [ ]h) Seizure [ ]i) Papilledema [ ]j) Retinal hemorrhage [ ]k) Microangiopathic hemolytic anemia [ ]l) Other significant finding secondary to hypertension [ ]II. Adrenergic or sympathomimetic crisis (eg, severe hypertension due to pheochromocytoma crisis, cocaine or amphetamine intoxication, or clonidine withdrawal) [X]III. Severe hypertension (SBP greater than 180 mmHg or DBP greater than 110 mmHg or greater than the 95th percentile for age, gender, and height in pediatric patients) that cannot be controlled (eg, to SBP less than 160 mmHg and DBP less than 100 mmHg in adults) by treatment with oral medication in emergency department or observation care Extended stay beyond goal length of stay may be needed for(11)(12)(13): [ ]a) Persistent hypertensive encephalopathy [ ]b) Continuation of pulmonary edema [ ]c) Recurring or persistent severe hypertension [ ]d) Target organ damage (eg, angina, stroke, aortic dissection) The original [employer] content created by [employer] has been revised. The portions of the content which have been revised are identified through the use of italic text, and [employer] [email or web address] has neither reviewed nor approved the modified material. All other unmodified content is copyright [employer] Please see references footnoted in the original [employer] edition 2014 Admission Criteria Met?: Yes JANET ANTON Oct 16, 2016 00:25
[2016-10-16 01:00] VITALS: BP 166/79
[2016-10-16] MEDS ORDERED: PROMETHAZINE 12.5 MG in IV NORMAL SALINE 50ML 50 ML IV PRN (01:15)
[2016-10-16] MEDS ORDERED: PROCHLORPERAZINE 10 MG/2 ML VIAL. IV PRN (01:15)
[2016-10-16 04:00] VITALS: BP 149/78
[2016-10-16] MEDS: ESTROGENS, CONJUGATED 25 MG VIAL IV SCH ×2 (04:00→10:00)
[2016-10-16 05:27] LABS: BASO # 0.1 x10^3/uL (0.0-0.2); BASO % 1 % (0-3); EOS % 1 % (0-3); HEMATOCRIT 31.3 % (36.0-47.0); HEMOGLOBIN 10.1 g/dL (12.0-15.5); LYMPH # 0.9 x10^3/uL (1.0-4.8); LYMPH % 10 % (24-48); MEAN CORPUSCULAR HEMOGLOBIN 24 pg (25-35); MEAN CORPUSCULAR HGB CONC 32 g/dL (31-37); MEAN CORPUSCULAR VOLUME 74 fL (79-100); MONO % 6 % (0-9); NEUT % 82 % (31-73); PLATELET COUNT 395 x10^3/uL (140-400); RED BLOOD COUNT 4.22 x10^6/uL (3.50-5.40); RED CELL DISTRIBUTION WIDTH 18.3 % (11.5-14.5); WHITE BLOOD COUNT 8.6 x10^3/uL (4.0-11.0)
[2016-10-16 05:46] LABS: % SAT IRON 10 % (15-34); IRON,SERUM 40 ug/dL (50-170)
[2016-10-16 05:56] LABS: CALCIUM 8.4 mg/dL (8.5-10.1); CREATININE 0.9 mg/dL (0.6-1.0); GFR 80.9; POTASSIUM 3.1 mmol/L (3.5-5.1)
[2016-10-16 08:00] VITALS: BP 167/91
[2016-10-16] MEDS: ASPIRIN ENTERIC COATED 81 MG TABLET.DR. PO SCH (08:00)
[2016-10-16 08:42] LABS: FOLATE 14.44 ng/ml (3.2-20.0)
[2016-10-16] MEDS: LISINOPRIL 20 MG TABLET PO SCH (08:58)
[2016-10-16] MEDS ORDERED: POTASSIUM CHLORIDE 20 MEQ TABLET.ER. PO ONE (09:15)
[2016-10-16] MEDS ORDERED: LISINOPRIL 20 MG TABLET PO ONE (10:00)
[2016-10-16] MEDS ORDERED: FERROUS SULFATE 325 MG TABLET. PO SCH (10:00)
[2016-10-16] MEDS ORDERED: CYANOCOBALAMIN (VITAMIN B-12) 1,000 MCG TABLET. PO SCH (10:00)
[2016-10-16 11:00] VITALS: BP 157/85
[2016-10-16] MEDS ORDERED: FERR325T72 PO (12:13)
[2016-10-16] MEDS ORDERED: AMLO5TAB2 PO (12:13)
[2016-10-16] MEDS ORDERED: CYAN10005 PO (12:13)
[2016-10-16] MEDS ORDERED: LISI40TA PO (12:13)
--- NOTE | 2016-10-16 12:14 | PDOC3 ---
Discharge Summary IPC Date of Admission: Oct 15, 2016 Discharge Date: Oct 16, 2016 Admitting Diagnosis HTN urgency abnormal vaginal bleeding, 2/2 uterine fibroids likely , had essure hypokalemia obesity anemia, likely chronic with vaginal bleeding Problems: CONSULTS card ob Brief Hospital Course Patient is a 46 year old woman, history of hypertension, dysfunctional uterine bleeding, possible fibroids, came to ER for vaginal bleeding for 2 weeks. Pt said not really following any PCP now, on changing PCP status, not taking any HTN meds for a long time, was taking amlodipine before. She has had vaginal bleeding for 2 weeks, never goes away, was heavy at the beginning, then better, then worse again. She has some headache, but not real lightheaded or chest pain. She had similar vaginal bleeding before, was told fibroids, saw ob, but not intervention was done, has Essure for control. in ER, hB 9.3. BP 240s/130s. in ICU for cardine drip. LISInopril added, cardine drip dced. pt will get EMB by dr. Kemp today. dc home with lisinopril, amlodipine, vitb12 and iron fu with ob for bx result. dc time 35min GEN.: No apparent distress. Alert and oriented. HEENT: Head is normocephalic, atraumatic NECK: Supple. LUNGS: Clear to auscultation. HEART: RRR, S1, S2 present. Peripheral pulses intact ABDOMEN: Soft, nontender. Positive bowel sounds. EXTREMITIES: Without any cyanosis. NEUROLOGIC: Normal speech, normal tone PSYCHIATRIC: Normal affect, normal mood. SKIN: No ulcerations Patient History: Hypertension in mother Unknown 32 MOTHER Problems: Disposition home CONDITION AT DISCHARGE: Improved Diet low salt Scheduled Amlodipine Besylate (Amlodipine Besylate), 5 MG PO DAILY Cyanocobalamin (Vitamin B-12) (Vitamin B-12), 1,000 MCG PO DAILY Ferrous Sulfate (Feosol), 325 MG PO BIDWMEALS Lisinopril (Lisinopril), 40 MG PO DAILY Follow Up pcp and ob in 1 week GIO MULLEN MD Oct 16, 2016 12:14
[2016-10-16] MEDS ORDERED: amLODIPine BESYLATE 5 MG TABLET PO SCH (13:00)
[2016-10-16 13:29] VITALS: BP 157/85
--- NOTE | 2016-10-16 14:02 | PDOC4 ---
PROCEDURE Procedure EMB Uterus sound 8cm EMB without difficulty Pt tolerated procedure well SIERRA EVANGELISTA MD Oct 16, 2016 14:02
--- NOTE | 2016-10-16 14:03 | PDOC ---
Provider Note Provider Note Pt stable EMB performed FU with me one week SIERRA EVANGELISTA MD Oct 16, 2016 14:03
[2016-10-17] MEDS ORDERED: LISINOPRIL 40 MG TABLET. PO SCH (09:00)
--- NOTE | 2016-10-17 18:07 | PATHOLOGY ---
PATHOLOGY REPORT * * * * * * * * FINAL DIAGNOSIS: Endometrial biopsy: - Mucous containing strips of endocervical epithelium and a few segments of endocervical mucosa showing chronic inflammation. See comment. COMMENT: There may be a few admixed small strips of endometrial surface epithelium. However, there is insufficient endometrial tissue for diagnosis. (JPM:mgr; 10/17/2016) REPORT ELECTRONICALLY SIGNED BY: Michael Barros M.D. DATE/TIME: 10/17/2016 18:06 * * * * * * * * GROSS PATHOLOGY: Received in formalin labeled "Areli Sinha, endometrial biopsy," are several segments of red-garcia membranous tissue admixed with mucoid material measuring 1.3 x 1.0 x 0.5 cm in aggregate dimensions. The specimen is submitted entirely in cassette A1. (JPM; 10/16/16) INITIAL CPT CODE(S): A; 30755 Professional services performed [place] [facility] [place] [address] Technical services performed by [facility] at [address] [place] [address]. SPECIMEN(S) RECEIVED: A.Endometrial biopsy CLINICAL HISTORY: Vaginal bleeding PATIENT: ARELI SINHA /AGE: 12 1970 (Age: 46) PATIENT #: [id number] ALT CASE #: SPECIMEN COLLECTION DATE: 10/16/2016 SPECIMEN RECEIVED DATE: 10/16/2016 [facility] - [address] [place] [address] - PHONE: [phone] * * * END OF REPORT * * *
== END 2016-10-16 14:30 | disposition home or self-care (01) | DRG 745 ==
LOC: ER 00:16 → 3 NORTH 03:20 → 1 WEST ICU 07:21 → 5 SOUTH 10-16 08:52
PROVIDERS: ADMIT Internal Medicine; ATTEND Internal Medicine
PROC: 0UDB7ZX Extraction of Endometrium, Via Natural or Artificial Opening, Diagnostic (ICD-10-PCS; principal; 2016-10-16)
DX: D25.9 Leiomyoma of uterus, unspecified (principal); I16.0 Hypertensive urgency; D50.0 Iron deficiency anemia secondary to blood loss (chronic); E66.9 Obesity, unspecified; I10 Essential (primary) hypertension; Z68.30 Body mass index [BMI] 30.0-30.9, adult; Z82.49 Family history of ischemic heart disease and other diseases of the circulatory system; Z91.19 Patient's noncompliance with other medical treatment and regimen; Z72.89 Other problems related to lifestyle
CPT/HCPCS: 36415; 76856; 80048; 80053; 81001; 81025; 82607; 82728; 82746; 83540; 83550; 83735; 84443; 85027; 87491; 87591; 87641; 88305; 93005; 96366; 96375; J0360; J0780; J1410; J2405; J3010; J3490; J7030; J7050; Q0111; 99285-25

== ENCOUNTER 2018-06-11 14:08 | Emergency (ER) | payer OTHER ==
[~2018-06-11] VITALS: Ht 167.6 cm; Wt 85.7 kg
[~2018-06-11 14:08] MED LIST: AMLO10TA8 PO; AMLO5TAB10 PO; ATOR20TA58 PO; CYAN10005 PO; FERR325T72 PO; HYDR-2761 PO; HYDR-2868 PO; ISOS10TA2 PO; LISI-130 PO; POTA20TA4 PO; SPIR25TA PO
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
--- NOTE | 2018-06-11 15:50 | EKG ---
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
[2018-06-11 16:26] LABS: BASO % 1 % (0-3); EOS # 0.1 x10^3/uL (0.0-0.7); EOS % 2 % (0-3); HEMATOCRIT 39.2 % (36.0-47.0); HEMOGLOBIN 12.2 g/dL (12.0-15.5); LYMPH # 1.2 x10^3/uL (1.0-4.8); LYMPH % 20 % (24-48); MEAN CORPUSCULAR HEMOGLOBIN 26 pg (25-35); MEAN CORPUSCULAR HGB CONC 31 g/dL (31-37); MEAN CORPUSCULAR VOLUME 82 fL (79-100); MONO # 0.5 x10^3/uL (0.0-1.1); MONO % 8 % (0-9); NEUT # 4.2 x10^3uL (1.8-7.7); NEUT % 70 % (31-73); PLATELET COUNT 333 x10^3/uL (140-400); RED BLOOD COUNT 4.76 x10^6/uL (3.50-5.40); RED CELL DISTRIBUTION WIDTH 27.3 % (11.5-14.5); WHITE BLOOD COUNT 5.9 x10^3/uL (4.0-11.0)
--- NOTE | 2018-06-11 16:42 | RAD ---
EXAM: Chest, single view. HISTORY: Headache. COMPARISON: 05/09/2018 FINDINGS: A frontal view the chest is obtained. There is suspected linear atelectasis within the lateral left mid thorax. There is no consolidation, pleural effusion or pneumothorax. The heart is normal in size. IMPRESSION: 1. No acute pulmonary finding. 2. Suspected linear left mid thorax atelectasis. Electronically signed by: Leonora Abbott MD (06/11/2018 4:39 PM) [id number]
[2018-06-11 16:49] LABS: CALCIUM 10.9 mg/dL (8.5-10.1); CREATININE 0.9 mg/dL (0.6-1.0); GFR 80.2; POTASSIUM 3.4 mmol/L (3.5-5.1)
[2018-06-11 16:51] LABS: ALBUMIN 4.7 g/dL (3.4-5.0); MAGNESIUM 2.2 mg/dL (1.8-2.4); TOTAL BILIRUBIN 0.4 mg/dL (0.2-1.0); TOTAL PROTEIN 9.6 g/dL (6.4-8.2)
[2018-06-11 16:54] LABS: BILIRUBIN,URINE NEGATIVE (NEG); CLARITY,URINE CLEAR; NITRITE,URINE NEGATIVE (NEG); PH,URINE 7.5; PROTEIN,URINE NEGATIVE (NEG-TRACE); UROBILINOGEN,URINE 0.2 mg/dL (0.2 mg/dL)
[2018-06-11 16:58] LABS: AMPHETAMINE/METHAMPHETAMINE NEG (NEG); BARBITURATES NEG (NEG); BENZODIAZEPINES NEG (NEG); CANNABINOIDS NEG (NEG); COCAINE NEG (NEG); METHADONE NEG (NEG); OPIATES POS (NEG); PHENCYCLIDINE NEG (NEG)
[2018-06-11 17:00] LABS: COLOR,URINE STRAW
--- NOTE | 2018-06-11 17:00 | RAD ---
CT HEAD WO CONTRAST Clinical indications: CVA in May 2018 who presents to the ED today complaining of a 7 out of 10 right sided headache that began at 1:30 PM today. Hypertension COMPARISON: May 09, 2018. Technique: Noncontrast axial cross sectional scanning of the head was performed. PQRS compliance Statement One or more of the following individualized dose reduction techniques were utilized for this study: 1. Automated exposure control 2. Adjustment of the mA and/or kV according to patient size 3. Use of iterative reconstruction technique Findings: The previously seen hyperdense hemorrhage within the right side of the sharri is not evident in today's study. Small residual hypodense area seen here. Otherwise no acute intracranial hemorrhage or midline shift or mass-effect or hydrocephalus or extra-axial fluid collection is seen. Again seen are 2 hypodense areas within the inferior aspect of the left basal ganglia. This may be due to congenital cysts or old infarcts and are stable. No new focal hypodense area or sulci effacement is seen to indicate an acute infarct or edema radiographically. No skull fracture or pneumocephalus is seen. No opacification of the mastoid sinuses or the paranasal sinuses is seen. The maxillary sinuses are not completely seen in this study. Impression: Resolution of previously seen hyperdense hemorrhage within the right side of the sharri. No new intracranial abnormality is seen. Electronically signed by: Donny Garay MD (06/11/2018 4:57 PM) [place] [id number]
[2018-06-11 17:01] LABS: BACTERIA,URINE 0 /HPF (0-FEW); SQUAMOUS EPITHELIAL CELL,UR FEW /LPF; WBC,URINE RARE /HPF (0-4)
[2018-06-11 17:31] LABS: ANISOCYTOSIS MARKED; PLT ESTIMATE ADEQUATE (ADEQUATE)
[2018-06-11 17:33] LABS: POLYCHROMASIA SLIGHT
[2018-06-11 18:14] VITALS: BP 188/95
== END 2018-06-11 18:28 | disposition home or self-care (01) ==
LOC: ER 14:08
DX: R51 Headache (principal); F43.9 Reaction to severe stress, unspecified; I10 Essential (primary) hypertension; Z86.73 Personal history of transient ischemic attack (TIA), and cerebral infarction without residual deficits
CPT/HCPCS: 36415; 70450; 71045; 80053; 80307; 81001; 82553; 83735; 83880; 84443; 84484; 85025; 93005; 99284-25

== ENCOUNTER → 2018-08-19 | Outpatient (CLI) | payer OTHER ==
--- NOTE | 2018-08-19 15:32 | KCIC ---
MRI Cervical Spine Without Contrast History: Cervical radiculopathy, neck pain, tightness, left upper extremity pain and numbness Technique: Multiplanar, multi sequential noncontrast MR imaging was performed of the cervical spine. Comparison: None Findings: Cervical vertebral body stature is overall maintained. There is mild reversal of the lordotic curvature centered near C6-7 with straightening above this level. There is mild grade 1 anterior spondylolisthesis C7-T1. There is moderate to severe degenerative disc disease C6-7, to a lesser degree at C7-T1 and C5-6. There is no significant marrow edema. Cervical cord caliber is within normal limits without significant focal signal abnormality. C2-C3: There is a very shallow posterior protrusion about 1 mm AP. Neural foramina and spinal canal are adequate. C3-C4: There is minimal posterior disc osteophyte complex and bulge, central canal minimally narrowed to about 9 mm. Neural foramina are adequate. C4-C5: There is a focal shallow posterior central protrusion 1 to 2 mm AP, central canal minimally narrowed to about 9 mm. Neural foramina are adequate. C5-C6: There is disc osteophyte complex, superimposed broad protrusion eccentric to the left lateral recess up to about 3 mm AP by 7 mm transverse with indentation upon the ventral thecal sac greater in the left lateral recess and focal effacement of ventral subarachnoid space in the left lateral recess with light contact of the left ventral cord. Central canal is narrowed to 7 to 8 mm also with mild to moderate left lateral recess stenosis. Neural foramina are adequate. C6-C7: There is disc osteophyte complex, superimposed bulge/broad protrusion about 2 mm AP. Central canal is narrowed to about 8 mm also with mild lateral recess stenosis bilaterally. There is very mild narrowing of the left neural foramen in part from uncovertebral degenerative change, right neural foramen overall adequate. C7-T1: There is facet degenerative change. Spinal canal is adequate. There is mild narrowing of left neural foramen, right neural foramen overall adequate. Impression: 1. There is spinal stenosis on the order of 8 mm at C5-6 and to a somewhat lesser degree at C6-7, minimally at C3-4 and C4-5 as described. 2. There is degenerative disc disease greatest at C6-7 and to lesser degree at C5-6 and C7-T1, mild spondylosis. 3. There is grade 1 anterior spondylolisthesis C7-T1 at which there is facet degenerative change. Electronically signed by: Alexi Kelsey MD (08/19/2018 3:29 PM) [email or web address]
== END | disposition home or self-care (01) ==
LOC: KCIC MRI 14:35
PROVIDERS: ATTEND Nurse Practitioner Family
DX: M50.13 Cervical disc disorder with radiculopathy, cervicothoracic region (principal); M48.03 Spinal stenosis, cervicothoracic region; M47.23 Other spondylosis with radiculopathy, cervicothoracic region; M25.78 Osteophyte, vertebrae; M43.13 Spondylolisthesis, cervicothoracic region
CPT/HCPCS: 72141